=== PATIENT | male | born 1975 | race Caucasian/White ===

== ENCOUNTER 2019-10-04 11:59 | Emergency (ER) | payer OTHER ==
[2019-10-04 12:32] VITALS: BP 132/89
--- NOTE | 2019-10-04 12:55 | UC ---
Respiratory Complaint HPI - HPI Summary HPI Summary: Pt presents with c/o cough, chest congestion, nasal congestion, body aches X 2 weeks. - History of Current Complaint Chief Complaint: UCRespiratory Stated Complaint: CHEST CONGESTION Time Seen by Provider: 10/04/19 12:41 Hx Obtained From: Patient Onset/Duration: Gradual Onset, Lasting Weeks, Still Present Timing: Constant Severity Initially: Mild Severity Currently: Moderate Pain Intensity: 2 Character: Cough: Nonproductive Aggravating Factors: Deep Breaths, Recumbent Position Alleviating Factors: Nothing Associated Signs And Symptoms: Positive: Chills, URI, Nasal Congestion - Risk Factors Pulmonary Embolism Risk Factors: Negative Cardiac Risk Factors: Negative Pseudomonas Risk Factors: Negative Tuberculosis Risk Factors: Negative - Allergies/Home Medications Allergies/Adverse Reactions: Allergies Allergy/AdvReac Type Severity Reaction Status Date / Time No Known Allergies Allergy Verified 10/04/19 12:33 Home Medications: Home Medications Vicks Vapo Rub 1 applic TOPICAL ONCE PRN 10/04/19 [History Confirmed 10/04/19] PMH/Surg Hx/FS Hx/Imm Hx Previously Healthy: Yes - Surgical History Surgical History: Yes Surgery Procedure, Year, and Place: right meniscus 2016~ - Family History Known Family History: Positive: Cardiac Disease - Social History Occupation: Employed Full-time Lives: With Family Alcohol Use: Occasionally Substance Use Type: None Smoking Status (MU): Former Smoker Have You Smoked in the Last Year: No When Did the Patient Quit Smoking/Using Tobacco: 2008 Review of Systems All Other Systems Reviewed And Are Negative: Yes Constitutional: Positive: Chills, Fatigue Skin: Positive: Negative Eyes: Positive: Negative ENT: Positive: Sinus Congestion, Sinus Pain/Tenderness Respiratory: Positive: Cough Cardiovascular: Positive: Negative Gastrointestinal: Positive: Negative Genitourinary: Positive: Negative Motor: Positive: Negative Neurovascular: Positive: Negative Musculoskeletal: Positive: Negative Neurological: Positive: Negative Psychological: Positive: Negative Is Patient Immunocompromised?: No Physical Exam Triage Information Reviewed: Yes Appearance: Ill-Appearing Vital Signs: Initial Vital Signs Temp 99.4 F 10/04/19 12:23 Pulse 79 10/04/19 12:23 Resp 18 10/04/19 12:23 BP 132/89 10/04/19 12:23 Pulse Ox 99 10/04/19 12:23 Vital Signs Reviewed: Yes Eye Exam: Normal ENT: Positive: Nasal congestion Dental Exam: Normal Neck exam: Normal Respiratory: Positive: No respiratory distress, Decreased breath sounds Musculoskeletal Exam: Normal Neurological Exam: Normal Psychological Exam: Normal Skin Exam: Normal Respiratory Course/Dx - Differential Dx/Diagnosis Differential Diagnosis/HQI/PQRI: Bronchitis, Exacerbation Of COPD Provider Diagnosis: Bronchitis Discharge ED - Sign-Out/Discharge Documenting (check all that apply): Patient Departure All imaging exams completed and their final reports reviewed: No Studies - Discharge Plan Condition: Stable Disposition: HOME Prescriptions: Azithromycin TAB* [Zithromax TAB (Z-SELWYN) 250 mg #6 tabs] 2 tab PO .TODAY, THEN 1 DAILY #1 selwyn guaiFENesin [Mucinex] 600 mg PO Q12H #14 tab.er.[id number] Patient Education Materials: Acute Bronchitis (ED) Referrals: Angie Rivera MD [Primary Care Provider] - If Needed - Billing Disposition and Condition Condition: STABLE Disposition: Home
== END 2019-10-04 13:02 | disposition home or self-care (01) ==
LOC: UCCORT 11:59
DX: J40 Bronchitis, not specified as acute or chronic (principal); R09.81 Nasal congestion; Z87.891 Personal history of nicotine dependence
CPT/HCPCS: 99212; G0463

== ENCOUNTER 2019-11-05 09:00 | Emergency (ER) | payer OTHER ==
[2019-11-05 09:18] VITALS: BP 147/89
--- NOTE | 2019-11-05 09:29 | UC ---
FLU HPI - HPI Summary HPI Summary: 44-year-old male presents with complaints of onset of fever, chills, fatigue, general malaise, body aches, mild nasal congestion, occasional cough, and nausea yesterday. States yesterday had a temperature of 101.0 F. Denies ear pain, sore throat, chest pain, shortness of breath, abdominal pain, vomiting, or diarrhea. - History of Current Complaint Chief Complaint: UCGeneralIllness Stated Complaint: BODY ACHES,CHILLS,UPSET STOMACH Time Seen by Provider: 11/05/19 09:16 Hx Obtained From: Patient Pain Intensity: 6 - Allergy/Home Medications Allergies/Adverse Reactions: Allergies Allergy/AdvReac Type Severity Reaction Status Date / Time No Known Allergies Allergy Verified 11/05/19 09:15 Home Medications: Home Medications NK [No Home Medications Reported] 11/05/19 [History Confirmed 11/05/19] PMH/Surg Hx/FS Hx/Imm Hx Previously Healthy: Yes - Denies significant PMH - Surgical History Surgical History: Yes Surgery Procedure, Year, and Place: right meniscus 2016~ - Family History Known Family History: Positive: Cardiac Disease - Social History Occupation: Employed Full-time Lives: With Family Alcohol Use: Occasionally Substance Use Type: None Smoking Status (MU): Former Smoker Have You Smoked in the Last Year: No When Did the Patient Quit Smoking/Using Tobacco: 2008 Review of Systems All Other Systems Reviewed And Are Negative: Yes Constitutional: Positive: Fever, Chills, Fatigue Skin: Positive: Negative Eyes: Negative: Drainage, Eye Redness ENT: Positive: Nasal Discharge. Negative: Sore Throat, Ear Ache, Sinus Congestion, Sinus Pain/Tenderness Respiratory: Positive: Cough. Negative: Shortness Of Breath Cardiovascular: Negative: Palpitations, Chest Pain Gastrointestinal: Positive: Nausea. Negative: Abdominal Pain, Vomiting, Diarrhea Genitourinary: Positive: Negative Musculoskeletal: Positive: Myalgia Neurological: Positive: Negative Is Patient Immunocompromised?: No Physical Exam - Summary Physical Exam Summary: GENERAL APPEARANCE: Well developed, well nourished, alert and cooperative, and appears to be in no acute distress. EYES: Conjunctiva clear. No drainage. EARS: External auditory canals and tympanic membranes clear, hearing grossly intact. NOSE: Mild No nasal discharge. THROAT: Pharynx normal No tonsilar inflammation, swelling, exudate, or lesions. Uvula midline. NECK: Neck supple, non-tender without lymphadenopathy. CARDIAC: Normal S1 and S2. No S3, S4 or murmurs. Rhythm is regular. There is no peripheral edema, cyanosis or pallor. Extremities are warm and well perfused. Capillary refill is less than 2 seconds. Peripheral pulses intact. LUNGS: Clear to auscultation without rales, rhonchi, wheezing or diminished breath sounds. ABDOMEN: Positive bowel sounds. Soft, nondistended, nontender. No guarding or rebound. No masses or hepatosplenomegally. MUSKULOSKELETAL: ROM intact to all extremities. No joint erythema or tenderness. Normal muscular development. Normal gait. SKIN: Skin normal color, texture and turgor with no lesions or eruptions. Triage Information Reviewed: Yes Vital Signs: Initial Vital Signs Temp 98.3 F 11/05/19 09:16 Pulse 105 11/05/19 09:16 Resp 15 11/05/19 09:16 BP 147/89 11/05/19 09:16 Pulse Ox 99 11/05/19 09:16 Vital Signs Reviewed: Yes Flu Course/Dx - Course Course Of Treatment: 44-year-old male presents with complaints of onset of fever, chills, fatigue, general malaise, body aches, mild nasal congestion, occasional cough, and nausea yesterday. States yesterday had a temperature of 101.0 F. Denies ear pain, sore throat, chest pain, shortness of breath, abdominal pain, vomiting, or diarrhea. Afebrile. Hypertensive and mildly tachycardic otherwise signs stable. Patient had some mild nasal congestion, normal pharynx, no cervical lymphadenopathy, clear bilateral breath sounds, soft nontender abdomen, and otherwise unremarkable exam. Rapid flu test was negative. Discussed with the patient that is symptoms were likely from a viral syndrome and recommending symptomatic treatment at this time. He is to follow-up with his primary care provider in 5-7 days if symptoms are not improving. Anticipatory guidance and warning symptoms were reviewed with the patient. Verbalizes understanding and agrees with plan of care. - Differential Dx/Diagnosis Differential Diagnosis/HQI/PQRI: Bronchitis, Influenza, Pneumonia, Upper Respiratory Infection, Other - Gastroenteritis Provider Diagnosis: Viral syndrome Discharge ED - Sign-Out/Discharge Documenting (check all that apply): Patient Departure All imaging exams completed and their final reports reviewed: No Studies - Discharge Plan Condition: Stable Disposition: HOME Patient Education Materials: Viral Syndrome (ED) Forms: *Work Release Referrals: Angie Rivera MD [Primary Care Provider] - 5 Days (Follow up in 5-7 days especially if symptoms are not improving. You should follow up within 4 weeks to have your blood pressure rechecked.) Additional Instructions: Your history and exam are consistent with a viral syndrome. Drink plenty of fluids to avoid dehydration especially if you are running any fever. If you are having nausea or vomiting, start with a clear liquid diet including soup broths, Jello, popsicles, and ventura-katie with carbonation stirred out of it. You may then advance to a bland diet including saltine crackers, toast, bananas, rice, and applesauce. Then return to a normal diet as tolerated. Follow up with your primary care provider in 5-7 days if symptoms persist. Your blood pressure was elevated in the clinic today. It is recommended that you have this rechecked by your primary care provider within 4 weeks. Seek immediate medical attention in the emergency room if you have fever greater than 100.5 F despite taking acetaminophen or ibuprofen, have chest pain , difficulty breathing, severe abdominal pain, persistent vomiting, or have any worsening of symptoms. - Billing Disposition and Condition Condition: STABLE Disposition: Home
[2019-11-05 09:38] LABS: Influenza A Molecular NEGATIVE (Negative); Influenza B Molecular NEGATIVE (Negative)
== END 2019-11-05 09:51 | disposition home or self-care (01) ==
LOC: UCCORT 09:00
DX: B34.9 Viral infection, unspecified (principal); R11.0 Nausea; I10 Essential (primary) hypertension; R53.81 Other malaise; R53.83 Other fatigue; R09.81 Nasal congestion; R05 Cough; Z87.891 Personal history of nicotine dependence
CPT/HCPCS: 99211; G0463